=== PATIENT | female | born 1970 | race Two or more races ===

== ENCOUNTER 2017-08-03 18:43 | Emergency (ER) | payer OTHER ==
[2017-08-03 18:54] VITALS: BP 119/71; PULSE 96; TEMP 99.2; BMI 32.2
[2017-08-03] MEDS ORDERED: SULFAMETHOXAZOLE/TRIMETHOPRIM 800MG/160MG D.S. TABLET PO ONE (19:23)
--- NOTE | 2017-08-03 19:29 | PDOC ---
History of Present Illness - General Chief Complaint: Wound Stated Complaint: abcess Time Seen by Provider: 08/03/17 19:06 History Source: Patient Exam Limitations: No Limitations - History of Present Illness Initial Comments: 08/03/17 19:26 Here with complaints of large abscess that started to drain yesterday to her right volar area/labia majora. Has only used ibuprofen for pain relief with minimal resolved. Timing/Duration: 1 week Severity: mild, moderate Associated Symptoms: reports: denies symptoms Past History - Travel Traveled outside of the country in the last 30 days: No Close contact w/someone who was outside of country & ill: No - Past Medical History Allergies/Adverse Reactions: Allergies Allergy/AdvReac Type Severity Reaction Status Date / Time No Known Allergies Allergy Verified 08/03/17 18:52 Home Medications: Ambulatory Orders Ibuprofen 800 mg PO Q8H PRN #20 tablet 01/25/17 Fexofenadine HCl [Marisa Allergy] 60 mg PO ASDIR 08/03/17 Oxycodone HCl/Acetaminophen [Percocet 5-325 mg Tablet -] 1 - 2 tab PO Q4H PRN # 10 tablet MDD 4 08/03/17 Sulfamethoxazole/Trimethoprim [Bactrim *Ds*] 1 each PO BID #14 tablet 08/03/17 COPD: No - Suicide/Smoking/Psychosocial Hx Smoking History: Never smoked Have you smoked in the past 12 months: No Information on smoking cessation initiated: No Hx Alcohol Use: No Drug/Substance Use Hx: No Substance Use Type: None Review of Systems - Review of Systems Able to Perform ROS?: Yes Is the patient limited Green[place]ic proficient: Yes Constitutional: Yes: Symptoms Reported, See HPI, Malaise. No: Fever HEENTM: No: Symptoms Reported Integumentary: Yes: Symptoms Reported, See HPI, Lesions Neurological: No: Symptoms reported All Other Systems: Reviewed and Negative *Physical Exam - Vital Signs Last Vital Signs Temp Pulse Resp BP Pulse Ox 99.2 F 96 H 16 119/71 100 08/03/17 18:52 08/03/17 18:52 08/03/17 18:52 08/03/17 18:52 08/03/17 18:52 - Physical Exam General Appearance: Yes: Nourished, Appropriately Dressed, Mild Distress HEENT: positive: VICKI, Normal ENT Inspection, TMs Normal, Pharynx Normal Neck: positive: Supple Respiratory/Chest: positive: Lungs Clear Female Pelvic Exam: negative: normal external exam (he shouldn't with abscess approximately 2 cm and draining purulent drainage with circumferential erythema approximately 10 cm and tender.) Gastrointestinal/Abdominal: positive: Soft. 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 Avoid strenuous activity or exercise until wound is healed Use hot soaks to area to bring more blood to the surface and encourage drainage May change dressings as needed to keep clean - trying to avoid removal of packing for 2 days. If packing needs to be changed, return to emergency department or with your followup physician for wound care and evaluation and repacking as needed If packing needs to be removed, then in 2 days, while in the shower remove dressing and quickly pull the packing taken out. Allow water from shower to wash area thoroughly for 2-3 minutes, and pat dry upon exit of shower and replace dressing. Change his dressing daily until the wound is completely healed. May use Tylenol or Motrin for mild pain relief Use stronger medications as directed and prescribed Continue all medications as prescribed Followup with private physician in 2-3 days for wound check Return to emergency Department for worsening swelling, pain, redness, fevers as needed - Post Discharge Activity Forms/Work/School Notes: Back to Work
[2017-08-03] MEDS ORDERED: SULFAMETHOXAZOLE/TRIMETHOPRIM 800MG/160MG D.S. TABLET ONE (19:47)
--- NOTE | 2017-08-06 07:46 | PDOC ---
Patient Follow-up (Call Back) - Post ED Follow - Up Condition at time of discharge: Stable Disposition at time of original discharge: HOME Reason for Call Back: Abnwl. Microbiology (Wound culture on preliminary shows MRSA. Patient on Bactrim. Will await final report)
--- NOTE | 2017-08-07 09:35 | PDOC ---
Patient Follow-up (Call Back) - Post ED Follow - Up Condition at time of discharge: Stable Disposition at time of original discharge: HOME Reason for Call Back: Abnwl. Microbiology (Pt on bactrim, sensitive on cx No need for calback)
== END 2017-08-03 19:50 | disposition home or self-care (01) ==
LOC: JERFT 18:43
PROC: 0J9C0ZZ Drainage of Pelvic Region Subcutaneous Tissue and Fascia, Open Approach (ICD-10-PCS; principal; 2017-08-03)
DX: L02.214 Cutaneous abscess of groin (principal)
CPT/HCPCS: 10060; 87070; 87186; 87205; 99281-25

== ENCOUNTER 2017-09-14 19:20 | Emergency (ER) | payer OTHER ==
[2017-09-14 20:02] VITALS: BP 154/83; PULSE 68; TEMP 98; BMI 31.7
--- NOTE | 2017-09-14 20:16 | PDOC ---
History of Present Illness - General Chief Complaint: Injury Stated Complaint: FALL INJURY Time Seen by Provider: 09/14/17 20:15 History Source: Patient Exam Limitations: No Limitations - History of Present Illness Initial Comments: 09/14/17 20:24 47-year-old female with no medical history presents to the ER complaining of pain to the left lateral ankle after she missed that the ascending a flight of stairs causing her to invert her left ankle. Pain is described as 5/10 dull nonradiating intermittent discomfort. The pain is exacerbated on weight-bear and alleviated at rest. Patient denies knee or foot pain. Patient denies striking her head. Patient denies neck or back pains. Patient has no other complaints. Past History - Past Medical History Allergies/Adverse Reactions: Allergies Allergy/AdvReac Type Severity Reaction Status Date / Time No Known Allergies Allergy Verified 09/14/17 20:02 COPD: No - Suicide/Smoking/Psychosocial Hx Smoking History: Never smoked Have you smoked in the past 12 months: No Information on smoking cessation initiated: No Hx Alcohol Use: No Drug/Substance Use Hx: No Substance Use Type: None Trauma Specific PMHX - Complaint Specific PMHX Arthritis: No Back Injury: No Neck Injury: No Hx Sacro Iliac Joint Dysfunction: No Review of Systems - Review of Systems Able to Perform ROS?: Yes Comments:: 09/14/17 20:22 CONSTITUTIONAL: Absent: fever, chills, diaphoresis, generalized weakness, malaise, loss of appetite HEENT: Absent: rhinorrhea, nasal congestion, throat pain, throat swelling, difficulty swallowing, mouth swelling, ear pain, eye pain, visual Changes CARDIOVASCULAR: Absent: chest pain, loss of consciousness, palpitations, irregular heart rate, peripheral edema RESPIRATORY: Absent: cough, shortness of breath, dyspnea with exertion, orthopnea, wheezing, stridor, hemoptysis GASTROINTESTINAL: Absent: abdominal pain, abdominal distension, nausea, vomiting, diarrhea, constipation, melena, hematochezia GENITOURINARY: Absent: dysuria, frequency, urgency, hesitancy, hematuria, flank pain, genital pain MUSCULOSKELETAL: +Left lat ankle pain Absent: myalgia, arthralgia, joint swelling SKIN: Absent: rash, itching, pallor GENERAL: Well developed, well nourished. Awake and alert. No acute distress. HEENT: Normocephalic, atraumatic. PERRLA, EOMI. No conjunctival pallor. Sclera are non- icteric. Moist mucous membranes. Oropharynx is clear. MUSCULOSKELETAL Normal range of motion at all joints. No bony deformities or tenderness. No CVA tenderness. EXTREMITIES: No cyanosis. No clubbing. No edema. No calf tenderness. SKIN: Warm and dry. Normal capillary refill. No rashes. No jaundice. Left lateral ankle Slight pain on palpation Minimal swelling No pain to the medial malleolus Achilles intact Negative Homans sign Left foot Full range of motion Negative pain to the base of the fifth metatarsal on palpation 2+ pedal pulse Left knee Full range of motion Negative pain on palpation Negative obvious deformity PROCEDURE NOTE Renard wrap to the left ankle Crutches Is the patient limited Mozambican proficient: No *Physical Exam - Vital Signs Last Vital Signs Temp Pulse Resp BP Pulse Ox 98.0 F 68 16 154/83 100 09/14/17 20:00 09/14/17 20:00 09/14/17 20:00 09/14/17 20:00 09/14/17 20:00 ED Treatment Course - RADIOLOGY Radiology Studies Ordered: Category Date Time Status ANKLE-LEFT [RAD] Stat Radiology 09/14/17 20:05 Ordered Radiograph Interpretation: 09/14/17 20:17 xray left ankle neg *DC/Admit/Observation/Transfer Diagnosis at time of Disposition: Left ankle sprain Qualifiers: Encounter type: initial encounter Involved ligament of ankle: other ligament Qualified Code(s): S93.492A - Sprain of other ligament of left ankle, initial encounter - Discharge Dispostion Condition at time of disposition: Stable Decision to Admit order: No - Referrals Referrals: Erich Callejas MD [Staff Physician] - - Patient Instructions Printed Discharge Instructions: DI for Ankle Sprain Additional Instructions: Ice; 20 mins on alternating with 20 mins off for 48 hours while awake. Rest Elevate Follow up with your orthopedic surgeon or the one listed on the discharge form. Return to the ER for severe/persistent/worsening symptoms, extremity numbness/ tingling sensation. - Post Discharge Activity
== END 2017-09-14 20:28 | disposition home or self-care (01) ==
LOC: JERFT 19:20
DX: S93.492A Sprain of other ligament of left ankle, initial encounter (principal); W10.8XXA Fall (on) (from) other stairs and steps, initial encounter; Y93.89 Activity, other specified; Y92.89 Other specified places as the place of occurrence of the external cause; Y99.8 Other external cause status
CPT/HCPCS: 73610-TC-LT-FY; 99281-25

== ENCOUNTER 2018-11-01 09:46 | Emergency (ER) | payer OTHER | END 2018-11-01 12:00 | disposition home or self-care (01) | LOC: JER 09:46 → JERFT 12:00 ==

== ENCOUNTER 2019-01-24 19:27 | Emergency (ER) | payer OTHER ==
[2019-01-24 19:37] VITALS: BP 113/82; PULSE 64; TEMP 98.2; BMI 28.6
[2019-01-24 21:32] LABS: EPI CELLS 1.9 /HPF (0-5/HPF); HYALINE CASTS 2 /lpf (0-8); PH,URINE 5.5 (5.0-8.0); URINE APPEARANCE CLEAR; URINE BACTERIA 411.3 /hpf (NEGATIVE); URINE BILIRUBIN NEGATIVE (NEGATIVE); URINE COLOR YELLOW; URINE GLUCOSE (UA) NEGATIVE (NEGATIVE); URINE KETONE NEGATIVE (NEGATIVE); URINE LEUK ESTERASE NEGATIVE (NEGATIVE); URINE NITRITE NEGATIVE (NEGATIVE); URINE PROTEIN NEGATIVE (NEGATIVE); URINE RBC 5 /hpf (0-4); URINE UROBILINOGEN 0.2 mg/dL (0.2-1.0)
[2019-01-24] MEDS ORDERED: IBUPROFEN 400 MG TABLET (FP) PO ONE ×2 (21:48→22:01)
[2019-01-24] MEDS ORDERED: METHOCARBAMOL 500 MG TABLET PO ONE (21:48)
--- NOTE | 2019-01-24 21:48 | PDOC ---
History of Present Illness - General Chief Complaint: Back Pain Stated Complaint: BACK PAIN Time Seen by Provider: 01/24/19 20:11 History Source: Patient Exam Limitations: No Limitations Past History - Past Medical History Allergies/Adverse Reactions: Allergies Allergy/AdvReac Type Severity Reaction Status Date / Time No Known Allergies Allergy Verified 11/01/18 09:50 Home Medications: Ambulatory Orders Sulfamethoxazole/Trimethoprim [Bactrim Ds -] 1 tab PO BID #14 tablet 11/01/18 Methocarbamol [Robaxin -] 1,500 mg PO QID PRN #24 tablet 01/24/19 COPD: No - Psycho Social/Smoking Cessation Hx Smoking History: Never smoked Have you smoked in the past 12 months: No Hx Alcohol Use: No Drug/Substance Use Hx: No Substance Use Type: None *Physical Exam - Vital Signs Last Vital Signs Temp Pulse Resp BP Pulse Ox 98.2 F 64 19 113/82 100 01/24/19 19:34 01/24/19 19:34 01/24/19 19:34 01/24/19 19:34 01/24/19 19:34 - Physical Exam General Appearance: No: Apparent Distress Respiratory/Chest: positive: Lungs Clear, Normal Breath Sounds. negative: Respiratory Distress Cardiovascular: positive: Regular Rhythm, Regular Rate, S1, S2. negative: Murmur Gastrointestinal/Abdominal: positive: Normal Bowel Sounds, Soft. negative: Tender, Distended, Guarding, Rebound Musculoskeletal: positive: Other (mild TTP along B/L lumbar paraspinal muscles) . negative: CVA Tenderness, Vertebral Tenderness Neurologic: positive: Alert, Normal Mood/Affect, Motor Strength 5/5, Other ( normal gait) ED Treatment Course - ADDITIONAL ORDERS Additional order review: Laboratory Results 01/24/19 01/24/19 20:30 20:30 Urine Color Yellow Urine Appearance Clear Urine pH 5.5 Ur Specific [place] 1.010 Urine Protein Negative Urine Glucose (UA) Negative Urine Ketones Negative Urine Blood Trace Urine Nitrite Negative Urine Bilirubin Negative Urine Urobilinogen 0.2 Ur Leukocyte Esterase Negative Urine RBC (Auto) 5 Urine Casts (Auto) 2 U Epithel Cells (Auto) 1.9 Urine Bacteria (Auto) 411.3 Urine HCG, Qual Negative Medical Decision Making - Medical Decision Making 48 y/o F with no sig pmh presents with LBP x 2 days, worse with movement of spine along with mild dysuria. Also mentions she did not get her menstrual cycle last month. Denies trauma or heavy lifting. 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 Denies fever, sob, cp, abd pain, n/v/d, hematuria, vaginal bleeding, numbness/tingling/ weakness of extremities, incontinence. UA and UCG negative Likely muscle strain - given Robaxin and Motrin 01/24/19 21:48 Discharge - Discharge Information Problems reviewed: Yes Clinical Impression/Diagnosis: Low back sprain Qualifiers: Encounter type: initial encounter Qualified Code(s): S33.5XXA - Sprain of ligaments of lumbar spine, initial encounter Condition: Stable Disposition: HOME - Admission No - Additional Discharge Information Prescriptions: Methocarbamol [Robaxin -] 1,500 mg PO QID PRN #24 tablet PRN Reason: Muscle Spasms Prescription Drug Monitoring Program (I-STOP) results: I-STOP not reviewed - Follow up/Referral Referrals: Manny Mtz [Primary Care Provider] - - Patient Discharge Instructions Patient Printed Discharge Instructions: DI for Back Strain or Sprain Additional Instructions: Thank you for choosing [facility]. It was a pleasure taking care of you. You may take Motrin 600 mg every 6 hours by mouth as needed for mild to moderate pain. Take Motrin with food. Take Robaxin as needed for muscle spasms. This medication can also make you drowsy so please be cautious with driving or performing heavy physical work. Heating pad/warm compresses/epsom salt baths may also help Follow-up with your doctor in 2 days Return to the Emergency Department if your symptoms worsen or persist, you have fever, shortness of breath, chest pain, severe abdominal pain, vomiting, weakness of extremities (arms and/or legs), unable to control bowel or bladder movements or other concerning symptoms. - Post Discharge Activity
[2019-01-24] MEDS ORDERED: METHOCARBAMOL 500 MG TABLET ONE (22:01)
== END 2019-01-24 22:04 | disposition home or self-care (01) ==
LOC: JERFT 19:27
DX: S33.5XXA Sprain of ligaments of lumbar spine, initial encounter (principal); X58.XXXA Exposure to other specified factors, initial encounter; Y93.89 Activity, other specified; Y92.89 Other specified places as the place of occurrence of the external cause; Y99.8 Other external cause status
CPT/HCPCS: 81003; 84703; 87086; 87186; 99282-25

== ENCOUNTER 2021-05-17 09:22 | Emergency (ER) | payer OTHER ==
[2021-05-17 09:49] VITALS: BP 112/68; PULSE 78; TEMP 98.3; BMI 27.9
[2021-05-17] MEDS ORDERED: MECLIZINE HCL 25 MG TABLET (FP) PO ONE (11:07)
[2021-05-17 14:20] LABS: BASO % 0.5 % (0-2.0); EOS % 0.3 % (0-4.5); HEMATOCRIT 44.8 % (32.4-45.2); HEMOGLOBIN 13.9 GM/dL (10.7-15.3); LYMPH % 20.4 % (8-40); MCH 25.7 pg (25.7-33.7); MEAN CELL VOLUME 82.9 fl (80-96); MEAN PLT VOLUME 8.1 fl (7.5-11.1); NEUT % 71.8 % (42.8-82.8); PLATELET COUNT 239 10^3/uL (134-434); RBC 5.41 M/mm3 (3.60-5.2); RDW 15.2 % (11.6-15.6); WHITE BLOOD COUNT 5.9 K/mm3 (4.0-10.0)
[2021-05-17 14:26] LABS: EPI CELLS 36 /uL (0-25.1); HYALINE CASTS 2 /uL (0-3.1); PH,URINE 7.5 (5.0-8.0); URINE APPEARANCE CLEAR; URINE BACTERIA 131 /uL (0-1359); URINE BILIRUBIN NEGATIVE (NEGATIVE); URINE COLOR YELLOW; URINE GLUCOSE (UA) NEGATIVE (NEGATIVE); URINE KETONE NEGATIVE (NEGATIVE); URINE LEUK ESTERASE 2+ (NEGATIVE); URINE NITRITE NEGATIVE (NEGATIVE); URINE PROTEIN NEGATIVE (NEGATIVE); URINE RBC 43 /uL (0-23.9); URINE UROBILINOGEN 0.2 mg/dL (0.2-1.0); URINE WBC 64 /uL (0-25.8)
[2021-05-17 14:53] LABS: BLOOD UREA NITROGEN 12.1 mg/dL (7-18); CALCIUM 10.1 mg/dL (8.5-10.1)
[2021-05-17 14:54] LABS: ALBUMIN 4.1 g/dl (3.4-5.0)
[2021-05-17 14:57] LABS: CREATININE 0.9 mg/dL (0.55-1.3)
[2021-05-17 14:59] LABS: TOT PROT 8.7 g/dl (6.4-8.2)
[2021-05-17 15:00] LABS: BILIRUBIN,TOTAL 0.7 mg/dL (0.2-1)
== END 2021-05-17 17:32 | disposition home or self-care (01) ==
LOC: JER 09:22 → JERFT 09:22
DX: R42 Dizziness and giddiness (principal)
CPT/HCPCS: 36415; 70450-TC; 80053; 81003; 84484; 85025; 87086; 93005; 93010; 99285-25